=== PATIENT | female | born 2000 | race African-American/Black ===

== ENCOUNTER 2025-03-08 04:08 | Emergency (ER) | payer OTHER ==
[~2025-03-08] VITALS: Ht 172.7 cm; Wt 87.0 kg
[2025-03-08 04:20] VITALS: TEMP 37.1; O2SAT 100
[2025-03-08] MEDS: KETOROLAC 15MG/ML VIAL IM ONE (04:39)
[2025-03-08] MEDS ORDERED: NAPR-1176 MT (05:35)
[2025-03-08 06:20] VITALS: BP 119/69; PULSE 79; RESP 18; O2SAT 100
== END 2025-03-08 06:26 | disposition home or self-care (01) ==
LOC: ER 04:08
DX: S62.623A Displaced fracture of middle phalanx of left middle finger, initial encounter for closed fracture (principal); F10.129 Alcohol abuse with intoxication, unspecified; W19.XXXA Unspecified fall, initial encounter; Y93.89 Activity, other specified; Y92.89 Other specified places as the place of occurrence of the external cause; Y99.8 Other external cause status; Y90.9 Presence of alcohol in blood, level not specified
CPT/HCPCS: 99283; 73130; 29125; 96372; J1885; 99284